=== PATIENT | male | born 1940 | race Caucasian/White ===

== ENCOUNTER 2020-03-25 10:00 | Emergency (ER) | payer MEDICARE ==
[~2020-03-25] VITALS: Ht 187.9 cm; Wt 102.1 kg
[~2020-03-25 10:00] MED LIST: ACCURETIC 25 MG1 TAB PO; ANTIVERT25 MG PO; ASPI-COR81 M1 PO; ATENOLOL25 MG PO; IMDUR30 MG PO
[2020-03-25 11:28] LABS: BASO % 0.4 % (0.0-1.0); EOS # 0.2 10*3/uL (0.0-0.4); EOS % 2.9 % (1.0-4.0); HEMATOCRIT 34.1 % (42.0-52.0); LYMPH # 0.9 10*3/uL (1.3-4.4); LYMPH % 11.6 % (27.0-41.0); MEAN CELL VOLUME 91.2 fl (80.0-94.0); MEAN CORPUSCULAR HGB 30.5 pg (27.0-31.0); MEAN CORPUSCULAR HGB CONC 33.4 g/dl (33.0-37.0); MEAN PLATELET VOLUME 11.2 fl (9.6-12.3); MONO # 0.9 10*3/uL (0.1-1.0); MONO % 11.4 % (3.0-9.0); NEUT # 5.6 10*3/uL (2.3-7.9); NEUT % 73.3 % (47.0-73.0); PLATELET COUNT AUTOMATED 135 10*3/uL (130-400); RED BLOOD COUNT 3.74 10*6/uL (4.50-5.90); RED CELL DISTRI WIDTH 13.6 % (0-14.5); WHITE BLOOD COUNT 7.6 10*3/uL (4.8-10.8)
[2020-03-25 11:48] LABS: ALKALINE PHOSPHATASE 62 U/L (45-117); BUN 24 mg/dl (7-24); CHLORIDE 102 mmol/L (98-107); CREATININE 1.25 mg/dL (0.70-1.30); POTASSIUM 4.2 mmol/L (3.5-5.1); SGOT/AST 21 IU/L (3-35); SGPT/ALT 17 U/L (12-78); SODIUM 136 mmol/L (136-145); TOTAL PROTEIN 7.5 gm/dL (6.4-8.2)
[2020-03-25] MEDS ORDERED: DOXYCYCLINE100 M3 PO (12:33)
== END 2020-03-25 14:29 | disposition home or self-care (01) ==
LOC: ED 10:00
PROVIDERS: Physician Assistant
DX: S81.802A Unspecified open wound, left lower leg, initial encounter (principal); L03.116 Cellulitis of left lower limb; L03.115 Cellulitis of right lower limb; I25.10 Atherosclerotic heart disease of native coronary artery without angina pectoris; I10 Essential (primary) hypertension; Z79.899 Other long term (current) drug therapy; X58.XXXA Exposure to other specified factors, initial encounter; Y93.89 Activity, other specified; Y92.89 Other specified places as the place of occurrence of the external cause; Y99.8 Other external cause status

== ENCOUNTER 2022-02-18 21:25 | Emergency (ER) | payer MEDICARE ==
[~2022-02-18] VITALS: Ht 187.9 cm; Wt 98.9 kg
[~2022-02-18 21:25] MED LIST changes: +DOXYCYCLINE100 M3 PO
[2022-02-18 22:19] LABS: BASO % 0.5 % (0.0-1.0); EOS # 0.2 10*3/uL (0.0-0.4); EOS % 2.9 % (1.0-4.0); HEMATOCRIT 31.5 % (42.0-52.0); LYMPH % 15.4 % (27.0-41.0); MEAN CELL VOLUME 91.8 fl (80.0-94.0); MEAN CORPUSCULAR HGB 31.2 pg (27.0-31.0); MEAN PLATELET VOLUME 11.5 fl (9.6-12.3); MONO # 0.6 10*3/uL (0.1-1.0); MONO % 9.9 % (3.0-9.0); NEUT # 4.4 10*3/uL (2.3-7.9); NEUT % 71.1 % (47.0-73.0); PLATELET COUNT AUTOMATED 118 10*3/uL (130-400); RED BLOOD COUNT 3.43 10*6/uL (4.50-5.90); RED CELL DISTRI WIDTH 13.3 % (0-14.5); WHITE BLOOD COUNT 6.2 10*3/uL (4.8-10.8)
[2022-02-18 22:21] LABS: ACT PARTIAL THROMBO TIME 27.5 SECONDS (20.0-32.1); INTERNATIONAL NORM RATIO 1.1 (2.0-3.5)
[2022-02-18 22:25] LABS: ALKALINE PHOSPHATASE 63 U/L (45-117); BUN 38 mg/dl (7-24); CHLORIDE 106 mmol/L (98-107); CREATININE 1.41 mg/dL (0.70-1.30); LIPASE 187 U/L (73-393); POTASSIUM 4.1 mmol/L (3.5-5.1); SGOT/AST 25 IU/L (3-35); SGPT/ALT 16 U/L (12-78); SODIUM 137 mmol/L (136-145); TOTAL PROTEIN 7.8 gm/dL (6.4-8.2)
== END 2022-02-19 01:40 | disposition left against medical advice (07) ==
LOC: ED 21:25
PROVIDERS: Physician Assistant
DX: K21.9 Gastro-esophageal reflux disease without esophagitis (principal)

== ENCOUNTER 2023-08-13 11:21 | Inpatient (IN) | payer OTHER ==
[~2023-08-13] VITALS: Ht 187.9 cm; Wt 95.5 kg
[~2023-08-13 11:21] MED LIST changes: +ADULT LOW DOSE81 MG PO; +COZAAR50 M1 PO; +DORZOLAMIDE HYD10 M2 OP; +ELIQUIS5 M1 PO; +FUROSEMIDE20 M1 PO; +LOSARTAN POTASS50 M1 PO; +LOSARTAN-HCTZ1 EACH PO; +OMEPRAZOLE40 MG PO; +POTASSIUM CHLO10 ME4 PO; +SYSTANE GEL EYE10 ML OP; +TOBRADEX 0.3-03.5 GM OPH; +TRAVOPROST2.5 M1 OP; +VITAMIN C1000 M4 PO; +ZITHROMAX250 MG PO
[2023-08-13 12:12] LABS: BASO % 0.6 % (0.0-1.0); EOS # 0.1 10*3/uL (0.0-0.4); EOS % 2.8 % (1.0-4.0); HEMATOCRIT 31.3 % (42.0-52.0); LYMPH # 0.5 10*3/uL (1.3-4.4); LYMPH % 11.5 % (27.0-41.0); MEAN CELL VOLUME 95.4 fl (80.0-94.0); MEAN CORPUSCULAR HGB 29.3 pg (27.0-31.0); MEAN CORPUSCULAR HGB CONC 30.7 g/dl (33.0-37.0); MEAN PLATELET VOLUME 11.9 fl (9.6-12.3); MONO # 0.6 10*3/uL (0.1-1.0); MONO % 13.5 % (3.0-9.0); NEUT # 3.3 10*3/uL (2.3-7.9); NEUT % 71.2 % (47.0-73.0); PLATELET COUNT AUTOMATED 105 10*3/uL (130-400); RED BLOOD COUNT 3.28 10*6/uL (4.50-5.90); RED CELL DISTRI WIDTH 13.6 % (0-14.5); WHITE BLOOD COUNT 4.7 10*3/uL (4.8-10.8)
[2023-08-13 12:20] VITALS: BP 146/61
[2023-08-13 12:21] LABS: ACT PARTIAL THROMBO TIME 32.6 SECONDS (20.0-32.1)
[2023-08-13 12:34] LABS: ALKALINE PHOSPHATASE 80 U/L (46-116); BUN 22 mg/dl (9-23); CHLORIDE 102 mmol/L (98-107); POTASSIUM 4.1 mmol/L (3.4-5.1); TOTAL PROTEIN 7.3 gm/dL (6.0-8.0)
[2023-08-13 12:35] LABS: SGPT/ALT < 7 U/L (5-49)
[2023-08-13 16:22] LABS: BILIRUBIN Negative (Negative); BLOOD Negative (Negative); CLARITY Clear (Clear); COLOR Yellow (Yellow); GLUCOSE Negative (Negative); KETONE Trace (Negative); LEUKO ESTERASE Trace (Negative); NITRITE Negative (Negative); PH 6.5 (4.5-8.0)
[2023-08-13 16:27] VITALS: BP 142/50
[2023-08-13 16:30] LABS: BACTERIA TRACE; EPITHELIAL CELLS 0-2
[2023-08-13 18:20] VITALS: BP 134/74
[2023-08-13 23:20] VITALS: BP 137/53
[2023-08-13 23:30] VITALS: BP 141/62
[2023-08-14 07:20] LABS: BASO % 0.8 % (0.0-1.0); EOS # 0.1 10*3/uL (0.0-0.4); EOS % 2.6 % (1.0-4.0); HEMATOCRIT 31.1 % (42.0-52.0); LYMPH # 0.7 10*3/uL (1.3-4.4); LYMPH % 13.3 % (27.0-41.0); MEAN CELL VOLUME 95.1 fl (80.0-94.0); MEAN CORPUSCULAR HGB 29.4 pg (27.0-31.0); MEAN CORPUSCULAR HGB CONC 30.9 g/dl (33.0-37.0); MEAN PLATELET VOLUME 12.8 fl (9.6-12.3); MONO # 0.7 10*3/uL (0.1-1.0); MONO % 13.2 % (3.0-9.0); NEUT # 3.7 10*3/uL (2.3-7.9); NEUT % 69.7 % (47.0-73.0); PLATELET COUNT AUTOMATED 103 10*3/uL (130-400); RED BLOOD COUNT 3.27 10*6/uL (4.50-5.90); RED CELL DISTRI WIDTH 13.7 % (0-14.5); WHITE BLOOD COUNT 5.3 10*3/uL (4.8-10.8)
[2023-08-14 07:46] LABS: BUN 20 mg/dl (9-23); CHLORIDE 101 mmol/L (98-107); POTASSIUM 3.7 mmol/L (3.4-5.1)
[2023-08-14 08:00] VITALS: BP 155/77
[2023-08-14 12:00] VITALS: BP 151/70
[2023-08-14 16:00] VITALS: BP 138/67
[2023-08-14 20:00] VITALS: BP 150/66
[2023-08-15] VITALS: BP 144/59
[2023-08-15 05:14] LABS: BUN 22 mg/dl (9-23); CHLORIDE 100 mmol/L (98-107); POTASSIUM 3.3 mmol/L (3.4-5.1)
[2023-08-15 08:00] VITALS: BP 157/63
[2023-08-15 12:00] VITALS: BP 141/62
[2023-08-15 16:00] VITALS: BP 157/75
[2023-08-15 20:00] VITALS: BP 125/48
[2023-08-16] VITALS: BP 136/61
[2023-08-16 05:21] LABS: POTASSIUM 3.5 mmol/L (3.4-5.1)
[2023-08-16 08:00] VITALS: BP 124/52
[2023-08-16 12:00] VITALS: BP 129/52
[2023-08-16] MEDS ORDERED: LASIX40 MG PO (12:39)
== END 2023-08-16 14:00 | disposition home or self-care (01) | DRG 292 ==
LOC: ED 11:21 → 5E 15:45 → EDHOLD 15:45 → 5E 21:50
PROVIDERS: Emergency Medicine; Internal Medicine; Student in an Organized Health Care Education/Training Program; ADMIT Internal Medicine; ATTEND Internal Medicine
DX: I50.33 Acute on chronic diastolic (congestive) heart failure (principal); D61.818 Other pancytopenia; K21.9 Gastro-esophageal reflux disease without esophagitis; I48.91 Unspecified atrial fibrillation; I25.10 Atherosclerotic heart disease of native coronary artery without angina pectoris; N18.31 Chronic kidney disease, stage 3a; D64.9 Anemia, unspecified; J44.9 Chronic obstructive pulmonary disease, unspecified; D69.6 Thrombocytopenia, unspecified; I27.20 Pulmonary hypertension, unspecified; Z95.5 Presence of coronary angioplasty implant and graft; Z87.891 Personal history of nicotine dependence; Z79.82 Long term (current) use of aspirin; Z79.899 Other long term (current) drug therapy

== ENCOUNTER 2023-10-18 16:26 | Inpatient (IN) | payer OTHER ==
[~2023-10-18] VITALS: Ht 188 cm; Wt 108.5 kg
[~2023-10-18 16:26] MED LIST changes: +LASIX40 MG PO
[2023-10-18 16:55] VITALS: BP 119/39
[2023-10-18] MEDS ORDERED: FUROSEMIDE 40 MG/4 ML VIAL IV ONE (18:45)
[2023-10-18 19:07] LABS: BASO % 0.4 % (0.0-1.0); EOS # 1.3 10*3/uL (0.0-0.4); EOS % 17.6 % (1.0-4.0); LYMPH # 0.7 10*3/uL (1.3-4.4); LYMPH % 8.9 % (27.0-41.0); MEAN CELL VOLUME 92.2 fl (80.0-94.0); MEAN CORPUSCULAR HGB CONC 30.4 g/dl (33.0-37.0); MEAN PLATELET VOLUME 10.9 fl (9.6-12.3); MONO # 0.8 10*3/uL (0.1-1.0); NEUT # 4.7 10*3/uL (2.3-7.9); NEUT % 61.7 % (47.0-73.0); PLATELET COUNT AUTOMATED 163 10*3/uL (130-400); RED BLOOD COUNT 2.93 10*6/uL (4.50-5.90); RED CELL DISTRI WIDTH 15.4 % (0-14.5); WHITE BLOOD COUNT 7.6 10*3/uL (4.8-10.8)
[2023-10-18 19:38] LABS: ALKALINE PHOSPHATASE 91 U/L (46-116); BUN 29 mg/dl (9-23); CHLORIDE 96 mmol/L (98-107); POTASSIUM 3.5 mmol/L (3.4-5.1); SGPT/ALT < 7 U/L (5-49); TOTAL PROTEIN 7.2 gm/dL (6.0-8.0)
[2023-10-18] MEDS ORDERED: BUMETANIDE1 MG PO (20:34)
[2023-10-18] MEDS ORDERED: Meclizine25 MG PO (20:36)
[2023-10-18 21:26] LABS: BILIRUBIN Negative (Negative); BLOOD Negative (Negative); CLARITY Clear (Clear); COLOR Yellow (Yellow); GLUCOSE Negative (Negative); KETONE Negative (Negative); LEUKO ESTERASE Negative (Negative); NITRITE Negative (Negative)
[2023-10-18 21:34] LABS: RBC 0-2 rbc/hpf (0-2)
[2023-10-18] MEDS ORDERED: BISACODYL 5 MG TAB PO PRN (21:55)
[2023-10-18] MEDS ORDERED: Ondansetron Hydrochloride 4 MG/2 ML VIAL IV PRN (21:55)
[2023-10-18] MEDS ORDERED: ACETAMINOPHEN 325 MG TAB PO PRN (21:55)
[2023-10-18] MEDS ORDERED: TEMAZEPAM 15 MG CAP PO PRN (21:55)
[2023-10-18] MEDS ORDERED: Magnesium Hydroxide 30 ML UDC PO PRN (21:55)
[2023-10-18] MEDS ORDERED: Acetaminophen/Hydrocodone 5 MG/325 MG TABLET PO PRN (21:55)
[2023-10-18] MEDS ORDERED: diphenhydrAMINE hydrochloride 25 MG CAP PO PRN (22:10)
[2023-10-18 22:41] VITALS: BP 117/32
[2023-10-19] MEDS ORDERED: FUROSEMIDE 40 MG/4 ML VIAL IV SCH (06:00)
[2023-10-19 06:09] LABS: ALKALINE PHOSPHATASE 87 U/L (46-116); BUN 27 mg/dl (9-23); CHLORIDE 97 mmol/L (98-107); POTASSIUM 3.3 mmol/L (3.4-5.1); TOTAL PROTEIN 6.7 gm/dL (6.0-8.0)
[2023-10-19 06:11] LABS: HEMATOCRIT 26.1 % (42.0-52.0); MEAN CELL VOLUME 92.6 fl (80.0-94.0); MEAN CORPUSCULAR HGB 27.7 pg (27.0-31.0); MEAN CORPUSCULAR HGB CONC 29.9 g/dl (33.0-37.0); MEAN PLATELET VOLUME 11.5 fl (9.6-12.3); PLATELET COUNT AUTOMATED 142 10*3/uL (130-400); RED BLOOD COUNT 2.82 10*6/uL (4.50-5.90); RED CELL DISTRI WIDTH 15.3 % (0-14.5); WHITE BLOOD COUNT 6.3 10*3/uL (4.8-10.8)
[2023-10-19 06:13] LABS: SGPT/ALT < 7 U/L (5-49)
[2023-10-19 06:14] LABS: MANUAL DIFF REFLEX YES
[2023-10-19 07:02] LABS: ACANTHOCYTES FEW; BASOPHILS 1 % (0-1); OVALOCYTES FEW; PLATELET SUFFICIENCY NORMAL (NORMAL); POLYCHROMASIA SLIGHT; TOTAL CELLS COUNTED 100 #CELLS
[2023-10-19] MEDS ORDERED: POTASSIUM CHLORIDE 20 MEQ TAB PO ONE (07:55)
[2023-10-19 10:00] VITALS: BP 114/37
[2023-10-19] MEDS ORDERED: Meclizine Hydrochloride 25 MG TAB PO SCH (10:00)
[2023-10-19] MEDS ORDERED: ASPIRIN ENTERIC COATED 81 MG TAB PO SCH (10:00)
[2023-10-19] MEDS ORDERED: APIXABAN 5 MG TAB PO SCH (10:00)
[2023-10-19] MEDS ORDERED: Dorzolamide Hydrochloride/TiMOLOL 2.23%/0.68% 10 ML BOTTLE OPH SCH ×2 (10:00→22:00)
[2023-10-19] MEDS ORDERED: TRAVOPROST 0.004% OPH SCH ×2 (10:00→22:00)
[2023-10-19 13:25] VITALS: BP 119/37
[2023-10-19 13:43] VITALS: BP 128/46
[2023-10-19 15:37] LABS: BF LYMPHOCYTES 65 %; BF MACROPHAGES 21 %; BF MESOTHELIALS 2 %; BF MONOCYTES 5 %; BF NEUTROPHILS 7 %
[2023-10-19 16:00] VITALS: BP 117/48
[2023-10-19 20:00] VITALS: BP 131/56
[2023-10-19] MEDS ORDERED: ISOSORBIDE MONONITRATE 30 MG TAB PO SCH (22:00)
[2023-10-20] VITALS (9 sets, daily range): BP systolic 107–123; BP diastolic 43–57
[2023-10-20 07:04] LABS: HEMATOCRIT 22.5 % (42.0-52.0); MEAN CELL VOLUME 90.7 fl (80.0-94.0); MEAN CORPUSCULAR HGB 27.8 pg (27.0-31.0); MEAN CORPUSCULAR HGB CONC 30.7 g/dl (33.0-37.0); MEAN PLATELET VOLUME 10.8 fl (9.6-12.3); PLATELET COUNT AUTOMATED 116 10*3/uL (130-400); RED BLOOD COUNT 2.48 10*6/uL (4.50-5.90); RED CELL DISTRI WIDTH 15.4 % (0-14.5)
[2023-10-20 07:05] LABS: MANUAL DIFF REFLEX YES
[2023-10-20 07:41] LABS: ACANTHOCYTES FEW; BASOPHILS 1 % (0-1); PLATELET SUFFICIENCY LOW (NORMAL); POLYCHROMASIA SLIGHT; SCHISTOCYTES FEW; TOTAL CELLS COUNTED 100 #CELLS
[2023-10-20 07:42] LABS: OVALOCYTES FEW
[2023-10-20 07:49] LABS: POTASSIUM 3.3 mmol/L (3.4-5.1)
[2023-10-20] MEDS ORDERED: SODIUM CHLORIDE 0.9% 500 ML IV ONE (09:37)
[2023-10-20 11:08] LABS: ACID FAST SPEC PROCESSING Direct Inoculation (.)
[2023-10-21] VITALS: BP 118/48
[2023-10-21 06:54] LABS: HEMATOCRIT 28.5 % (42.0-52.0); MEAN CELL VOLUME 92.8 fl (80.0-94.0); MEAN CORPUSCULAR HGB 28.7 pg (27.0-31.0); MEAN CORPUSCULAR HGB CONC 30.9 g/dl (33.0-37.0); MEAN PLATELET VOLUME 11.3 fl (9.6-12.3); RED BLOOD COUNT 3.07 10*6/uL (4.50-5.90); RED CELL DISTRI WIDTH 15.3 % (0-14.5); WHITE BLOOD COUNT 9.7 10*3/uL (4.8-10.8)
[2023-10-21 07:07] LABS: MANUAL DIFF REFLEX YES; PLATELET COUNT AUTOMATED 163 10*3/uL (130-400)
[2023-10-21 07:18] LABS: POTASSIUM 3.3 mmol/L (3.4-5.1)
[2023-10-21 07:39] LABS: ACANTHOCYTES FEW; BASOPHILS 1 % (0-1); OVALOCYTES FEW; PLATELET SUFFICIENCY NORMAL (NORMAL); POLYCHROMASIA SLIGHT; TOTAL CELLS COUNTED 100 #CELLS
[2023-10-21 08:00] VITALS: BP 112/46
[2023-10-21] MEDS ORDERED: POTASSIUM CHLORIDE 20 MEQ TAB PO ONE (08:50)
[2023-10-21] MEDS ORDERED: methylPREDNISolone sod succ 125 MG VIAL IV ONE (11:05)
[2023-10-21 12:00] VITALS: BP 108/42
[2023-10-21 16:00] VITALS: BP 124/66
[2023-10-21 20:00] VITALS: BP 131/56
[2023-10-22] VITALS: BP 127/67
[2023-10-22 05:39] LABS: ALKALINE PHOSPHATASE 90 U/L (46-116); BUN 29 mg/dl (9-23); CHLORIDE 93 mmol/L (98-107); POTASSIUM 3.5 mmol/L (3.4-5.1); TOTAL PROTEIN 6.5 gm/dL (6.0-8.0)
[2023-10-22 05:41] LABS: SGPT/ALT < 7 U/L (5-49)
[2023-10-22 05:54] VITALS: BP 122/51
[2023-10-22 06:13] LABS: BASO % 0.2 % (0.0-1.0); EOS # 0.1 10*3/uL (0.0-0.4); EOS % 1.6 % (1.0-4.0); HEMATOCRIT 25.6 % (42.0-52.0); LYMPH # 0.5 10*3/uL (1.3-4.4); LYMPH % 10.5 % (27.0-41.0); MEAN CELL VOLUME 92.8 fl (80.0-94.0); MEAN CORPUSCULAR HGB 28.3 pg (27.0-31.0); MEAN CORPUSCULAR HGB CONC 30.5 g/dl (33.0-37.0); MEAN PLATELET VOLUME 11.5 fl (9.6-12.3); MONO # 0.5 10*3/uL (0.1-1.0); MONO % 10.5 % (3.0-9.0); NEUT % 76.8 % (47.0-73.0); PLATELET COUNT AUTOMATED 126 10*3/uL (130-400); RED BLOOD COUNT 2.76 10*6/uL (4.50-5.90); RED CELL DISTRI WIDTH 15.1 % (0-14.5); WHITE BLOOD COUNT 5.1 10*3/uL (4.8-10.8)
[2023-10-22 08:00] VITALS: BP 117/53
[2023-10-22] MEDS ORDERED: predniSONE 20 MG TAB PO SCH (11:10)
[2023-10-22 11:30] VITALS: BP 123/67
[2023-10-22 16:00] VITALS: BP 127/63
[2023-10-22 20:00] VITALS: BP 130/52
[2023-10-23] VITALS: BP 102/37
[2023-10-23 05:23] VITALS: BP 128/59
[2023-10-23 06:07] LABS: BUN 30 mg/dl (9-23); CHLORIDE 96 mmol/L (98-107); POTASSIUM 3.2 mmol/L (3.4-5.1)
[2023-10-23 06:23] LABS: BASO % 0.2 % (0.0-1.0); EOS # 0.6 10*3/uL (0.0-0.4); EOS % 10.2 % (1.0-4.0); HEMATOCRIT 24.9 % (42.0-52.0); LYMPH # 0.8 10*3/uL (1.3-4.4); LYMPH % 13.4 % (27.0-41.0); MEAN CELL VOLUME 90.9 fl (80.0-94.0); MEAN CORPUSCULAR HGB 28.8 pg (27.0-31.0); MEAN CORPUSCULAR HGB CONC 31.7 g/dl (33.0-37.0); MEAN PLATELET VOLUME 11.1 fl (9.6-12.3); MONO # 0.7 10*3/uL (0.1-1.0); MONO % 11.2 % (3.0-9.0); NEUT # 3.9 10*3/uL (2.3-7.9); NEUT % 64.8 % (47.0-73.0); PLATELET COUNT AUTOMATED 117 10*3/uL (130-400); RED BLOOD COUNT 2.74 10*6/uL (4.50-5.90); RED CELL DISTRI WIDTH 15.2 % (0-14.5)
[2023-10-23] MEDS ORDERED: POTASSIUM CHLORIDE 20 MEQ TAB PO ONE (07:05)
[2023-10-23 08:00] VITALS: BP 139/64
[2023-10-23] MEDS ORDERED: LASIX40 MG PO (11:33)
== END 2023-10-23 14:00 | disposition home health service (06) | DRG 291 ==
LOC: ED 16:26 → 4E 20:55 → EDHOLD 20:55 → 4E 10-19 11:20
PROVIDERS: Emergency Medicine; Internal Medicine; Physician Assistant Medical; Student in an Organized Health Care Education/Training Program; ADMIT Student in an Organized Health Care Education/Training Program; ATTEND Student in an Organized Health Care Education/Training Program
PROC: 30233N1 Transfusion of Nonautologous Red Blood Cells into Peripheral Vein, Percutaneous Approach (ICD-10-PCS; principal; 2023-10-20)
PROC: 0W993ZZ Drainage of Right Pleural Cavity, Percutaneous Approach (ICD-10-PCS; 2023-10-20)
DX: I13.0 Hypertensive heart and chronic kidney disease with heart failure and stage 1 through stage 4 chronic kidney disease, or unspecified chronic kidney disease (principal); I50.33 Acute on chronic diastolic (congestive) heart failure; N17.0 Acute kidney failure with tubular necrosis; I48.20 Chronic atrial fibrillation, unspecified; J91.8 Pleural effusion in other conditions classified elsewhere; E87.1 Hypo-osmolality and hyponatremia; I25.10 Atherosclerotic heart disease of native coronary artery without angina pectoris; D64.9 Anemia, unspecified; J44.9 Chronic obstructive pulmonary disease, unspecified; K21.9 Gastro-esophageal reflux disease without esophagitis; R73.9 Hyperglycemia, unspecified; N18.32 Chronic kidney disease, stage 3b; Z68.28 Body mass index [BMI] 28.0-28.9, adult; Z95.5 Presence of coronary angioplasty implant and graft; Z82.49 Family history of ischemic heart disease and other diseases of the circulatory system; Z81.8 Family history of other mental and behavioral disorders; Z86.69 Personal history of other diseases of the nervous system and sense organs

== ENCOUNTER 2023-11-22 13:41 | Inpatient (IN) | payer OTHER ==
[~2023-11-22] VITALS: Ht 187.9 cm; Wt 94.1 kg
[~2023-11-22 13:41] MED LIST changes: +BUMETANIDE1 MG PO; +Meclizine25 MG PO
[2023-11-22 13:43] VITALS: BP 134/60
[2023-11-22] MEDS ORDERED: BUMETANIDE 1 MG/4 ML VIAL IV ONE (13:50)
[2023-11-22 14:11] LABS: BASO # 0.1 10*3/uL (0.0-0.1); BASO % 0.9 % (0.0-1.0); EOS # 0.4 10*3/uL (0.0-0.4); EOS % 7.7 % (1.0-4.0); HEMATOCRIT 24.8 % (42.0-52.0); LYMPH # 0.7 10*3/uL (1.3-4.4); LYMPH % 12.6 % (27.0-41.0); MEAN CORPUSCULAR HGB 26.3 pg (27.0-31.0); MEAN CORPUSCULAR HGB CONC 30.2 g/dl (33.0-37.0); MEAN PLATELET VOLUME 10.5 fl (9.6-12.3); MONO # 0.8 10*3/uL (0.1-1.0); MONO % 15.6 % (3.0-9.0); NEUT # 3.3 10*3/uL (2.3-7.9); NEUT % 62.6 % (47.0-73.0); PLATELET COUNT AUTOMATED 147 10*3/uL (130-400); RED BLOOD COUNT 2.85 10*6/uL (4.50-5.90); WHITE BLOOD COUNT 5.3 10*3/uL (4.8-10.8)
[2023-11-22 14:30] LABS: POTASSIUM 3.5 mmol/L (3.4-5.1)
[2023-11-22 15:02] VITALS: BP 115/58
[2023-11-22] MEDS ORDERED: Magnesium Hydroxide 30 ML UDC PO PRN (15:10)
[2023-11-22] MEDS ORDERED: BISACODYL 5 MG TAB PO PRN (15:10)
[2023-11-22] MEDS ORDERED: ACETAMINOPHEN 325 MG TAB PO PRN (15:10)
[2023-11-22] MEDS ORDERED: FUROSEMIDE 40 MG/4 ML VIAL IV SCH (15:20)
[2023-11-22 18:58] VITALS: BP 144/57
[2023-11-22 19:20] VITALS: BP 104/31
[2023-11-22] MEDS ORDERED: APIXABAN 5 MG TAB PO SCH (22:00)
[2023-11-22] MEDS ORDERED: ISOSORBIDE MONONITRATE 30 MG TAB PO SCH (22:00)
[2023-11-22 22:34] VITALS: BP 125/40
[2023-11-22 23:45] VITALS: BP 121/46
[2023-11-23] VITALS: BP 134/58
[2023-11-23 06:25] LABS: BASO # 0.1 10*3/uL (0.0-0.1); BASO % 1.2 % (0.0-1.0); EOS # 0.4 10*3/uL (0.0-0.4); EOS % 9.8 % (1.0-4.0); HEMATOCRIT 24.2 % (42.0-52.0); LYMPH # 0.7 10*3/uL (1.3-4.4); LYMPH % 17.1 % (27.0-41.0); MEAN CELL VOLUME 87.1 fl (80.0-94.0); MEAN CORPUSCULAR HGB 25.9 pg (27.0-31.0); MEAN CORPUSCULAR HGB CONC 29.8 g/dl (33.0-37.0); MEAN PLATELET VOLUME 11.4 fl (9.6-12.3); MONO # 0.6 10*3/uL (0.1-1.0); NEUT # 2.4 10*3/uL (2.3-7.9); NEUT % 56.7 % (47.0-73.0); PLATELET COUNT AUTOMATED 123 10*3/uL (130-400); RED BLOOD COUNT 2.78 10*6/uL (4.50-5.90); RED CELL DISTRI WIDTH 16.2 % (0-14.5); RETICULOCYTE % 2.71 % (0.50-2.50); WHITE BLOOD COUNT 4.3 10*3/uL (4.8-10.8)
[2023-11-23 06:59] LABS: ALKALINE PHOSPHATASE 81 U/L (46-116); BUN 33 mg/dl (9-23); CHLORIDE 99 mmol/L (98-107); FREE T4 1.03 ng/dl (0.89-1.76); TOTAL PROTEIN 6.8 gm/dL (6.0-8.0)
[2023-11-23 07:02] LABS: SGPT/ALT < 7 U/L (5-49)
[2023-11-23 08:00] VITALS: BP 126/54
[2023-11-23] MEDS ORDERED: POTASSIUM CHLORIDE 20 MEQ TAB PO ONE (08:50)
[2023-11-23] MEDS ORDERED: Dorzolamide Hydrochloride/TiMOLOL 2.23%/0.68% 10 ML BOTTLE OPH SCH (10:00)
[2023-11-23] MEDS ORDERED: AMMONIUM LACTATE 12% LOTION T SCH (10:00)
[2023-11-23] MEDS ORDERED: POTASSIUM CHLORIDE 10 MEQ TAB PO SCH (10:00)
[2023-11-23] MEDS ORDERED: TRAVOPROST 0.004% OPH SCH ×2 (10:00→22:00)
[2023-11-23 12:00] VITALS: BP 113/43
[2023-11-23] MEDS ORDERED: Lidocaine Hydrochloride 30 ML VIAL ONE (13:06)
[2023-11-23] MEDS ORDERED: Lidocaine Hydrochloride 30 ML VIAL SC ONE (13:50)
[2023-11-23] MEDS ORDERED: AZITHROMYCIN 250 ML IV SCH (14:00)
[2023-11-23] MEDS ORDERED: Ceftriaxone Sodium 1 GM in SYRINGE INFUSION 10 ML IV SCH (15:00)
[2023-11-23 16:30] VITALS: BP 99/43
[2023-11-23 20:00] VITALS: BP 125/40
[2023-11-24] VITALS: BP 100/41
[2023-11-24 06:50] LABS: BASO % 0.8 % (0.0-1.0); EOS # 0.5 10*3/uL (0.0-0.4); EOS % 8.8 % (1.0-4.0); LYMPH # 0.8 10*3/uL (1.3-4.4); MEAN CELL VOLUME 85.8 fl (80.0-94.0); MEAN CORPUSCULAR HGB 26.1 pg (27.0-31.0); MEAN CORPUSCULAR HGB CONC 30.4 g/dl (33.0-37.0); MEAN PLATELET VOLUME 11.6 fl (9.6-12.3); MONO # 0.7 10*3/uL (0.1-1.0); MONO % 14.1 % (3.0-9.0); NEUT # 3.2 10*3/uL (2.3-7.9); NEUT % 59.9 % (47.0-73.0); PLATELET COUNT AUTOMATED 120 10*3/uL (130-400); RED BLOOD COUNT 2.68 10*6/uL (4.50-5.90); RED CELL DISTRI WIDTH 16.3 % (0-14.5); WHITE BLOOD COUNT 5.3 10*3/uL (4.8-10.8)
[2023-11-24 07:08] LABS: POTASSIUM 3.3 mmol/L (3.4-5.1)
[2023-11-24 08:00] VITALS: BP 104/41
[2023-11-24] MEDS ORDERED: POTASSIUM CHLORIDE 20 MEQ TAB PO ONE (10:55)
[2023-11-24] MEDS ORDERED: IRON325 M1 PO (10:56)
[2023-11-24] MEDS ORDERED: NA FERRIC GLUC CMPL/SUCROSE 62.5 MG/5 ML VIAL IV ONE (10:59)
[2023-11-24] MEDS ORDERED: OMNICEF300 MG PO (11:01)
[2023-11-24] MEDS ORDERED: ZITHROMAX500 MG PO (11:01)
== END 2023-11-24 14:06 | disposition home or self-care (01) | DRG 291 ==
LOC: ED 13:41 → 5E 15:01 → EDHOLD 15:01 → 5E 23:32
PROVIDERS: Family Medicine; Physician Assistant Medical; Student in an Organized Health Care Education/Training Program; ADMIT Internal Medicine; ATTEND Internal Medicine
PROC: 0W993ZZ Drainage of Right Pleural Cavity, Percutaneous Approach (ICD-10-PCS; principal; 2023-11-23)
DX: I13.0 Hypertensive heart and chronic kidney disease with heart failure and stage 1 through stage 4 chronic kidney disease, or unspecified chronic kidney disease (principal); I50.33 Acute on chronic diastolic (congestive) heart failure; J18.9 Pneumonia, unspecified organism; J91.8 Pleural effusion in other conditions classified elsewhere; I48.20 Chronic atrial fibrillation, unspecified; E87.1 Hypo-osmolality and hyponatremia; I27.20 Pulmonary hypertension, unspecified; N18.30 Chronic kidney disease, stage 3 unspecified; I25.10 Atherosclerotic heart disease of native coronary artery without angina pectoris; K21.9 Gastro-esophageal reflux disease without esophagitis; E87.6 Hypokalemia; D50.9 Iron deficiency anemia, unspecified; Z95.5 Presence of coronary angioplasty implant and graft; Z87.891 Personal history of nicotine dependence; Z82.49 Family history of ischemic heart disease and other diseases of the circulatory system; Z81.8 Family history of other mental and behavioral disorders

== ENCOUNTER → 2023-11-27 | Outpatient (CLI) | payer OTHER ==
[~2023-11-27] MED LIST changes: +IRON325 M1 PO; +OMNICEF300 MG PO; +ZITHROMAX500 MG PO
== END | disposition home or self-care (01) ==
LOC: WOUNDCARE 03:46
PROVIDERS: ATTEND Nurse Practitioner Family
DX: S91.105A Unspecified open wound of left lesser toe(s) without damage to nail, initial encounter (principal); I11.0 Hypertensive heart disease with heart failure; I50.30 Unspecified diastolic (congestive) heart failure; I25.10 Atherosclerotic heart disease of native coronary artery without angina pectoris; I48.91 Unspecified atrial fibrillation; I87.2 Venous insufficiency (chronic) (peripheral); H40.9 Unspecified glaucoma; K21.9 Gastro-esophageal reflux disease without esophagitis; L60.9 Nail disorder, unspecified; J90 Pleural effusion, not elsewhere classified; B35.1 Tinea unguium; Z87.891 Personal history of nicotine dependence; Z95.818 Presence of other cardiac implants and grafts; Z79.82 Long term (current) use of aspirin; Z79.899 Other long term (current) drug therapy; W22.8XXA Striking against or struck by other objects, initial encounter; Y93.89 Activity, other specified; Y92.89 Other specified places as the place of occurrence of the external cause; Y99.8 Other external cause status

== ENCOUNTER → 2024-06-07 | Outpatient (CLI) | payer OTHER ==
[~2024-06-07] MED LIST changes: +ASPIRIN ADULT L81 M2 PO; +CARVEDILOL25 MG PO; +CARVEDILOL3.125 MG PO; +DORZOLAMIDE HYD10 M2 OU; +LASIX20 MG PO; +MIDODRINE HCL2.5 MG PO; +MIDODRINE HCL5 M1 PO; +OMEPRAZOLE MAGN20 MG PO; +OMEPRAZOLE20 M3 PO; +SYSTANE 0.3-0.415 ML OP; +TRAVATAN 0.0042.5 M1 OU; +Zaroxolyn,Diul2.5 MG PO
== END | disposition home or self-care (01) ==
LOC: ORTHO 00:55
PROVIDERS: ATTEND Orthopaedic Surgery
DX: S72.011A Unspecified intracapsular fracture of right femur, initial encounter for closed fracture (principal); M79.89 Other specified soft tissue disorders; X58.XXXA Exposure to other specified factors, initial encounter; Y93.89 Activity, other specified; Y92.89 Other specified places as the place of occurrence of the external cause; Y99.8 Other external cause status

== ENCOUNTER 2024-06-14 17:33 | Emergency (ER) | payer OTHER ==
[~2024-06-14] VITALS: Ht 187.9 cm; Wt 102.1 kg
== END 2024-06-14 18:09 | disposition home or self-care (01) ==
LOC: ED 17:33
DX: S70.01XA Contusion of right hip, initial encounter (principal); I25.10 Atherosclerotic heart disease of native coronary artery without angina pectoris; I11.0 Hypertensive heart disease with heart failure; K21.9 Gastro-esophageal reflux disease without esophagitis; I50.9 Heart failure, unspecified; I48.91 Unspecified atrial fibrillation; D64.9 Anemia, unspecified; Z98.890 Other specified postprocedural states; Z87.891 Personal history of nicotine dependence; W19.XXXA Unspecified fall, initial encounter; Y93.89 Activity, other specified; Y92.89 Other specified places as the place of occurrence of the external cause; Y99.8 Other external cause status